=== PATIENT | female | born 1995 | race African-American/Black ===

== ENCOUNTER 2016-12-06 16:07 | Emergency (ER) | payer OTHER ==
[~2016-12-06] VITALS: Ht 160 cm; Wt 66.7 kg
[2016-12-06 16:12] VITALS: BP 116/74
[2016-12-06] MEDS ORDERED: PERMETHRIN60 GM TOP (16:44)
[2016-12-06] MEDS ORDERED: BENADRYL ALLERG25 M2 PO (16:44)
--- NOTE | 2016-12-06 16:44 | ED SKIN/ALLERGY COMPLAINT ---
History of Present Illness General Chief Complaint: Skin Rash/ Abcess Stated Complaint: ?SCABIES Source: patient, old records Exam Limitations: no limitations Vital Signs & Intake/Output Vital Signs & Intake/Output Vital Signs Date Time Temp Pulse Resp B/P Pulse O2 O2 Flow FiO2 Ox Delivery Rate 12/06 1612 98.0 80 20 116/74 98 Room Air Allergies Coded Allergies: No Known Allergies (09/11/16) Reconcile Medications Diphenhydramine HCl (Benadryl Allergy) 25 MG TABLET 1-2 TAB PO Q6P PRN itchy rash Permethrin 5 % CREAM..G. 1 SEEMA TOP ONCE scabies massage into skin from head to soles of feet one time, leave on for 8-14 hours then remove by thorough washing repeat in one week Triage Note: PT TO ED ? SCABIES. STATES HER WORK HAD AN OUTBREAK 4 WEEKS AGO. C/O "BUMPS" TO LEGS AND THIGHS. Triage Nurses Notes Reviewed? yes Onset: Last week Duration: day(s):, constant, continues in ED, getting worse Timing: recent history Severity: mild Location: torso, extremities Possible Factors: insect bite Modifying Factors: Improves With: scratching. 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 1 week prior to admission patient developed itchy rash to buttocks area lower extremities. She denies fever chills nausea vomiting diarrhea abdominal pain chest pain shortness breath headache dysuria rash bleeding Past History Travel History Traveled to [place] past 21 day No Medical History Any Pertinent Medical History? none Surgical History Surgical History: non-contributory Psychosocial History What is your primary language Chinese Tobacco Use: Never used ETOH Use: denies use Illicit Drug Use: denies illicit drug use Family History Hx Contributory? No Review of Systems Review of Systems Constitutional: Reports: no symptoms. EENTM: Reports: no symptoms. Respiratory: Reports: no symptoms. Cardiovascular: Reports: no symptoms. GI: Reports: no symptoms. Genitourinary: Reports: no symptoms. Musculoskeletal: Reports: no symptoms. Skin: Reports: see HPI, rash. Neurological/Psychological: Reports: no symptoms. Hematologic/Endocrine: Reports: no symptoms. Immunologic/Allergic: Reports: no symptoms. All Other Systems: Reviewed and Negative Physical Exam Physical Exam General Appearance: well developed/nourished, mild distress Head: atraumatic Eyes: Bilateral: PERRL, EOMI. Ears, Nose, Throat: normal pharynx, normal ENT inspection, hearing grossly normal Neck: normal inspection, supple Respiratory: normal breath sounds Cardiovascular: regular rate/rhythm Peripheral Pulses: 4+ carotid (R), 4+ carotid (L) Gastrointestinal: soft, non-tender Back: normal inspection, normal range of motion Extremities: normal inspection, normal range of motion, no edema Neurologic/Psych: awake, alert, oriented x 3, normal mood/affect Reflexes: 2+: bicep (R), bicep (L). Skin: intact, normal color, rash Skin Problem Location: torso, lower extremities Skin Problem Character: linear, patchy, rash Lymphatic: no anterior cervical angela Progress Differential Diagnosis: abscess/cellulitis, allergic reaction, contact dermatitis, urticaria Plan of Care: permethrin Departure Departure Time of Disposition: 1641 Disposition: HOME OR SELF CARE Condition: Stable Clinical Impression Primary Impression: Scabies exposure Referrals: PATIENT HAS NO PRIMARY CARE DR (PCP/Family) Departure Forms: Customer Survey General Discharge Information Prescriptions: Current Visit Scripts Permethrin 1 SEEMA TOP ONCE #60 GM Ref 1 massage into skin from head to soles of feet one time, leave on for 8-14 hours then remove by thorough washing repeat in one week Diphenhydramine HCl (Benadryl Allergy) 1-2 TAB PO Q6P PRN itchy rash #30 TAB Ref 1
== END 2016-12-06 16:59 ==
LOC: ERH 16:07
DX: R21 Rash and other nonspecific skin eruption (principal)